=== PATIENT | female | born 1950 | race Caucasian/White ===

== ENCOUNTER 2018-10-29 06:30 | Day surgery (SDC) | payer OTHER | END 2018-10-29 13:25 | disposition home or self-care (01) | LOC: AMB-ENDOS 06:30 | DX: D12.2 Benign neoplasm of ascending colon (principal); D12.3 Benign neoplasm of transverse colon; K64.8 Other hemorrhoids ==

== ENCOUNTER 2020-07-04 08:00 | Outpatient (CLI) | payer OTHER ==
[~2020-07-04] VITALS: Ht 167.6 cm; Wt 89.8 kg
[~2020-07-04 08:00] MED LIST: CLONAZEPAM0.5 MG PO; LOSARTAN-HCTZ1 EAC2 PO; PEPCID AC20 MG PO; TOPROL XL50 M1 PO
== END 2020-07-04 08:02 | disposition home or self-care (01) ==
LOC: LAB 08:00 → SURH 07-08 06:45 → EDSTATUS 07-08 10:00 → SURH 07-08 10:00
PROVIDERS: ATTEND Colon & Rectal Surgery
DX: K57.32 Diverticulitis of large intestine without perforation or abscess without bleeding (principal); K55.1 Chronic vascular disorders of intestine; Z20.822 Contact with and (suspected) exposure to COVID-19

== ENCOUNTER 2020-08-05 09:30 | Inpatient (IN) | payer OTHER ==
[~2020-08-05] VITALS: Ht 162.6 cm; Wt 88.0 kg
[2020-08-05] MEDS ORDERED: METFORMIN PO (12:42)
[2020-08-12] MEDS ORDERED: PRAVASTATIN SOD40 MG (15:21)
[2020-08-12] MEDS ORDERED: CANDESARTAN CIL16 MG (15:21)
[2020-08-12] MEDS ORDERED: IBANDRONATE SO150 MG (15:21)
[2020-08-12] MEDS ORDERED: PANTOPRAZOLE SO40 MG (15:21)
[2020-08-12] MEDS ORDERED: METFORMIN HCL500 M4 (15:21)
[2020-08-12] MEDS ORDERED: FLONASE16 GM (15:22)
[2020-08-12] MEDS ORDERED: LANSOPRAZOLE30 MG (15:22)
== END 2020-08-19 12:55 | disposition home or self-care (01) | DRG 354 ==
LOC: SURH 08-12 07:00 → O/R 08-12 08:34 → SURG 08-12 08:34 → SURH 08-12 09:30 → SURG 08-12 17:51
PROVIDERS: ADMIT Colon & Rectal Surgery; ATTEND Colon & Rectal Surgery
PROC: 0WQF0ZZ Repair Abdominal Wall, Open Approach (ICD-10-PCS; 2020-08-12)
PROC: 0DTU4ZZ Resection of Omentum, Percutaneous Endoscopic Approach (ICD-10-PCS; 2020-08-12)
PROC: 0WJF4ZZ Inspection of Abdominal Wall, Percutaneous Endoscopic Approach (ICD-10-PCS; 2020-08-12)
PROC: 0DBN4ZX Excision of Sigmoid Colon, Percutaneous Endoscopic Approach, Diagnostic (ICD-10-PCS; principal; 2020-08-12 13:30)
DX: K57.32 Diverticulitis of large intestine without perforation or abscess without bleeding (principal); T81.49XA Infection following a procedure, other surgical site, initial encounter; K43.9 Ventral hernia without obstruction or gangrene; K63.5 Polyp of colon; K62.1 Rectal polyp

== ENCOUNTER 2021-08-16 06:46 | Day surgery (SDC) | payer OTHER ==
[~2021-08-16 06:46] MED LIST changes: +CANDESARTAN CIL16 MG; +FLONASE16 GM; +IBANDRONATE SO150 MG; +LANSOPRAZOLE30 MG; +METFORMIN HCL500 M4; +METFORMIN PO; +PANTOPRAZOLE SO40 MG; +PRAVASTATIN SOD40 MG
== END 2021-08-16 14:23 | disposition home or self-care (01) ==
LOC: AMB-ENDOS 06:46
PROVIDERS: ATTEND Colon & Rectal Surgery
DX: D12.4 Benign neoplasm of descending colon (principal); Z20.822 Contact with and (suspected) exposure to COVID-19; K57.30 Diverticulosis of large intestine without perforation or abscess without bleeding; Z86.010 Personal history of colon polyps; I10 Essential (primary) hypertension